=== PATIENT | male | born 1965 | race Caucasian/White ===

== ENCOUNTER 2017-04-25 22:37 | Emergency (ER) | payer BC, OTHER ==
[~2017-04-25] VITALS: Ht 182.9 cm; Wt 76.8 kg
[2017-04-25 22:38] VITALS: BP 119/72
[2017-04-25] MEDS ORDERED: PROPARACAINE OPHTH 0.5%, 15ML ONE (22:51)
[2017-04-25] MEDS ORDERED: FLUORESCEIN OPHTHALMIC 1 MG STRIP ONE (22:51)
[2017-04-25] MEDS ORDERED: PROPARACAINE OPHTH 0.5%, 15ML EACHEYE ONE (23:00)
[2017-04-25] MEDS ORDERED: FLUORESCEIN OPHTHALMIC 1 MG STRIP EACHEYE ONE (23:00)
== END 2017-04-25 23:11 | disposition home or self-care (01) ==
LOC: ED 23:01
DX: H57.12 Ocular pain, left eye (principal)
CPT/HCPCS: 99283

== ENCOUNTER 2017-06-08 12:30 | Inpatient (IN) | payer BC ==
[~2017-06-08] VITALS: Ht 182.9 cm; Wt 79.4 kg
[2017-06-08] MEDS ORDERED: SODIUM CHLORIDE 0.9% 1,000 ML IV ONE (13:50)
[2017-06-08] MEDS ORDERED: SODIUM CHLORIDE FLUSH 10ML SYR IVF ONE (14:00)
[2017-06-08] MEDS ORDERED: AMPICILLIN/SULBACTAM 3 GM in SODIUM CHLORIDE 0.9% 100 ML IVPB ONE (14:00)
[2017-06-08] MEDS ORDERED: SODIUM CHLORIDE 0.9% 1,000ML IVBOLUS ONE (14:00)
[2017-06-08 14:28] LABS: ASPARTATE AMINO TRANSFERASE 29 U/L (15-37); BLOOD UREA NITROGEN 13 mg/dL (7-18)
[2017-06-08] MEDS ORDERED: ACETAMINOPHEN 325 MG TABLET PO PRN (15:30)
[2017-06-08] MEDS ORDERED: PIPERACILLIN/TAZO/PMX 3.375GM 50 ML IV SCH (15:30)
[2017-06-08] MEDS ORDERED: ONDANSETRON 2MG/ML, 2ML IVPush PRN (15:30)
[2017-06-08] MEDS ORDERED: POLYETHYLENE GLYCOL 17 GM PACKET PO PRN (15:30)
[2017-06-08 17:37] VITALS: BP 131/81
[2017-06-08] MEDS: HYDROcodone/APAP 5/325 TABLET PO PRN ×2 (17:55→22:37)
[2017-06-08] MEDS ORDERED: NS + 20MEQ KCL 1,000 ML IV SCH (18:00)
[2017-06-08] MEDS ORDERED: PHARMACOKINETIC MONITORING MC PRN (19:00)
[2017-06-08] MEDS ORDERED: PHARMACOKINETIC CONSULTATION MC ONE (19:00)
[2017-06-08] MEDS ORDERED: VANCOMYCIN PER PHARMACY MC PRN (19:00)
[2017-06-08 19:39] VITALS: BP 97/53
[2017-06-08] MEDS: VANCOMYCIN 1,400 MG in SODIUM CHLORIDE 0.9% 250 ML IV SCH (20:50)
[2017-06-08] MEDS: PIPERACILLIN/TAZO/PMX 3.375GM 50 ML IV SCH (22:28)
[2017-06-08] MEDS ORDERED: OMNIPAQUE 350 MG/ML, 100ML BOTTLE ONE (23:47)
[2017-06-09 02:09] VITALS: BP 104/58
[2017-06-09] MEDS: PIPERACILLIN/TAZO/PMX 3.375GM 50 ML IV SCH ×4 (04:12→23:23)
[2017-06-09] MEDS: HYDROcodone/APAP 5/325 TABLET PO PRN (04:23)
[2017-06-09] MEDS: morphine SULFATE 10 MG/ML, 1ML IVPush PRN ×2 (04:35→12:58)
[2017-06-09 05:18] LABS: BLOOD UREA NITROGEN 16 mg/dL (7-18)
[2017-06-09 06:39] VITALS: BP 107/59
[2017-06-09] MEDS: SENNA/DOCUSATE TABLET PO SCH (09:57)
[2017-06-09] MEDS: VANCOMYCIN 1,400 MG in SODIUM CHLORIDE 0.9% 250 ML IV SCH (09:57)
[2017-06-09 14:05] VITALS: BP 106/58
[2017-06-09] MEDS ORDERED: MIDAZOLAM 1 MG/ML, 2ML ONE (16:25)
[2017-06-09] MEDS ORDERED: FENTANYL PF 250 MCG/5ML ONE (16:25)
[2017-06-09] MEDS ORDERED: ROCURONIUM 10 MG/ML ONE (16:59)
[2017-06-09] MEDS ORDERED: DEXAMETHASONE 4 MG/ML, 1ML ONE (16:59)
[2017-06-09] MEDS ORDERED: SUCCINYLCHOLINE 20 MG/ML, 10ML ONE (16:59)
[2017-06-09] MEDS ORDERED: CEFAZOLIN 1,000 MG ONE (16:59)
[2017-06-09] MEDS ORDERED: PROPOFOL 10 MG/ML, 20ML ONE (16:59)
[2017-06-09] MEDS ORDERED: ONDANSETRON 2MG/ML, 2ML ONE (16:59)
[2017-06-09] MEDS ORDERED: VANCOMYCIN 1,000 MG ONE (17:33)
[2017-06-09] MEDS ORDERED: BUPIVACAINE/PF-EPI 0.5% 1:200K ONE (18:31)
[2017-06-09] MEDS ORDERED: FENTANYL PF 100 MCG/2ML IV PRN (19:00)
[2017-06-09] MEDS ORDERED: ACETAMINOPHEN 325 MG TABLET PO PRN (19:00)
[2017-06-09] MEDS ORDERED: LABETALOL 5MG/ML, 20ML IV PRN (19:00)
[2017-06-09] MEDS ORDERED: hydrALAzine 20 MG/ML, 1ML IV PRN (19:00)
[2017-06-09] MEDS ORDERED: METOCLOPRAMIDE 5 MG/ML, 2ML IV PRN (19:00)
[2017-06-09] MEDS ORDERED: ONDANSETRON 2MG/ML, 2ML IVPush PRN (19:00)
[2017-06-09] MEDS ORDERED: HYDROmorphone 1 MG/ML, 1ML IV PRN ×2 (19:00→21:00)
[2017-06-09] MEDS ORDERED: OXYcodone 5 MG/5 ML ORAL.SOL UDC PO PRN (19:00)
[2017-06-09] MEDS ORDERED: FLUORESCEIN SODIUM 500 MG/5 ML ONE (19:21)
[2017-06-09] MEDS ORDERED: OXYcodone 5 MG/5 ML ORAL.SOL UDC ONE (21:24)
[2017-06-09 23:09] VITALS: BP 106/56
[2017-06-10] MEDS: VANCOMYCIN 1,400 MG in SODIUM CHLORIDE 0.9% 250 ML IV SCH ×3 (00:04→23:59)
[2017-06-10] MEDS: OXYcodone IR 5MG TABLET PO PRN ×5 (01:37→23:20)
[2017-06-10 02:52] VITALS: BP 106/62
[2017-06-10] MEDS: PIPERACILLIN/TAZO/PMX 3.375GM 50 ML IV SCH ×2 (05:19→11:03)
[2017-06-10 06:44] VITALS: BP 97/60
[2017-06-10] MEDS: SENNA/DOCUSATE TABLET PO SCH (09:00)
[2017-06-10] MEDS: DOCUSATE 100 MG CAPSULE PO PRN (10:19)
[2017-06-10 12:37] VITALS: BP 101/63
[2017-06-10] MEDS: ENOXAPARIN 40 MG/0.4 ML SQ SCH (15:49)
[2017-06-10 19:04] VITALS: BP 96/60
[2017-06-11 02:34] VITALS: BP 103/56
[2017-06-11] MEDS: OXYcodone IR 5MG TABLET PO PRN ×3 (03:56→19:28)
[2017-06-11 07:11] VITALS: BP 85/39
[2017-06-11 07:27] VITALS: BP 93/50
[2017-06-11 10:55] VITALS: BP 102/58
[2017-06-11] MEDS: SENNA/DOCUSATE TABLET PO SCH (10:55)
[2017-06-11] MEDS: VANCOMYCIN 1,400 MG in SODIUM CHLORIDE 0.9% 250 ML IV SCH (12:23)
[2017-06-11 14:01] VITALS: BP 115/66
[2017-06-11] MEDS: DOCUSATE 100 MG CAPSULE PO PRN (15:08)
[2017-06-11] MEDS: ENOXAPARIN 40 MG/0.4 ML SQ SCH (15:08)
[2017-06-11 18:39] VITALS: BP 119/49
[2017-06-12] MEDS: VANCOMYCIN 1,400 MG in SODIUM CHLORIDE 0.9% 250 ML IV SCH ×3 (00:22→23:55)
[2017-06-12 01:32] VITALS: BP 102/58
[2017-06-12 06:38] VITALS: BP 120/60
[2017-06-12] MEDS: SENNA/DOCUSATE TABLET PO SCH (10:52)
[2017-06-12] MEDS: DOCUSATE 100 MG CAPSULE PO PRN (10:52)
[2017-06-12] MEDS: OXYcodone IR 5MG TABLET PO PRN (12:43)
[2017-06-12 13:03] VITALS: BP 121/69
[2017-06-12] MEDS: ENOXAPARIN 40 MG/0.4 ML SQ SCH (15:06)
[2017-06-12 19:48] VITALS: BP 114/55
[2017-06-13 02:07] VITALS: BP 122/66
[2017-06-13 07:38] VITALS: BP 113/66
[2017-06-13] MEDS: SENNA/DOCUSATE TABLET PO SCH (09:21)
[2017-06-13] MEDS: OXYcodone IR 5MG TABLET PO PRN ×2 (09:21→20:22)
[2017-06-13] MEDS: VANCOMYCIN 1,400 MG in SODIUM CHLORIDE 0.9% 250 ML IV SCH ×2 (12:32→23:49)
[2017-06-13 12:45] VITALS: BP 120/58
[2017-06-13] MEDS: ENOXAPARIN 40 MG/0.4 ML SQ SCH (15:53)
[2017-06-13 18:54] VITALS: BP 129/73
[2017-06-14 00:11] VITALS: BP 120/66
[2017-06-14 07:30] VITALS: BP 117/68
[2017-06-14] MEDS: DOCUSATE 100 MG CAPSULE PO PRN (08:35)
[2017-06-14] MEDS: SENNA/DOCUSATE TABLET PO SCH (08:35)
[2017-06-14] MEDS: VANCOMYCIN 1,400 MG in SODIUM CHLORIDE 0.9% 250 ML IV SCH (12:03)
[2017-06-14 12:26] VITALS: BP 109/62
[2017-06-14] MEDS ORDERED: ENOX80SY5 SQ (14:19)
[2017-06-14] MEDS ORDERED: ACET650S21 PO (14:20)
[2017-06-14] MEDS ORDERED: SENN1TAB5 PO (14:20)
[2017-06-14] MEDS ORDERED: VANC1.5P3 IV (14:20)
[2017-06-14] MEDS ORDERED: OXYC5TAB3 PO (14:21)
[2017-06-14] MEDS ORDERED: DOCU-30 PO (14:21)
[2017-06-14] MEDS ORDERED: ONDA4TAB7 IV (14:21)
[2017-06-14] MEDS ORDERED: POLY17PO5 PO (14:22)
[2017-06-14] MEDS: ENOXAPARIN 40 MG/0.4 ML SQ SCH (15:46)
== END 2017-06-14 17:10 | DRG 493 ==
LOC: ED 14:13 → SUATTDRO 15:17 → EDIP 15:26 → 3NE 16:55 → 4NOR 06-09 18:55
PROVIDERS: ADMIT Family Medicine; ATTEND Family Medicine
PROC: 0QBG0ZZ Excision of Right Tibia, Open Approach (ICD-10-PCS; principal; 2017-06-08)
PROC: 0QPG04Z Removal of Internal Fixation Device from Right Tibia, Open Approach (ICD-10-PCS; 2017-06-08)
PROC: 0QPJ04Z Removal of Internal Fixation Device from Right Fibula, Open Approach (ICD-10-PCS; 2017-06-08)
PROC: 0SHF08Z Insertion of Spacer into Right Ankle Joint, Open Approach (ICD-10-PCS; 2017-06-08)
PROC: 02HV33Z Insertion of Infusion Device into Superior Vena Cava, Percutaneous Approach (ICD-10-PCS; 2017-06-13)
PROC: B5181ZA Fluoroscopy of Superior Vena Cava using Low Osmolar Contrast, Guidance (ICD-10-PCS; 2017-06-13)
PROC: B548ZZA Ultrasonography of Superior Vena Cava, Guidance (ICD-10-PCS; 2017-06-13)
DX: M86.461 Chronic osteomyelitis with draining sinus, right tibia and fibula (principal); T84.116A Breakdown (mechanical) of internal fixation device of bone of right lower leg, initial encounter; Z96.9 Presence of functional implant, unspecified
CPT/HCPCS: 36415; 36569; 76001; 76937; 77001; 80048; 80053; 80202; 81001; 83605; 84145; 85025; 85651; 86141; 87040; 87070; 87075; 87077; 87086; 87186; 87205; 96365; 96366; C1713; J0295; J0690; J1100; J1650; J2250; J2405; J2543; J2704; J3010; J3370; J3480; Q9967; C1751; J0330; J2270; J7030; J7050

== ENCOUNTER 2018-04-06 17:47 | Emergency (ER) | payer BC, OTHER ==
[~2018-04-06] VITALS: Ht 182.9 cm; Wt 74.2 kg
[~2018-04-06 17:47] MED LIST: ACET650S21 PO; DOCU-131 PO; ENOX80SY5 SQ; ONDA4TAB7 IV; OXYC5TAB3 PO; POLY17PO5 PO; SENN-52 PO; [UNRECOGNIZED DRUG - CODE] IV
[2018-04-06 18:25] LABS: BASOPHILS # (AUTO) 0.02 x10^3/uL (0-0.1); BASOPHILS % (AUTO) 0 % (0-1); EOSINOPHILS # (AUTO) 0.03 x10^3/uL (0-0.4); EOSINOPHILS % (AUTO) 0 % (1-7); LYMPHOCYTES # (AUTO) 1.35 x10^3/uL (1-3.4); LYMPHOCYTES % (AUTO) 13 % (22-44); MD NO; MEAN CORPUSCULAR HEMOGLOBIN 31.3 pg (27.5-34.5); MEAN CORPUSCULAR HGB CONC 34.1 g/dL (33.2-36.2); MEAN CORPUSCULAR VOLUME 91.6 fL (81-97); MEAN PLATELET VOLUME 7.7 fL (7.4-10.4); MONOCYTES # (AUTO) 0.94 x10^3/uL (0.2-0.8); MONOCYTES % (AUTO) 9 % (2-9); NEUTROPHILS # (AUTO) 8.34 x10^3/uL (1.8-6.8); NEUTROPHILS % (AUTO) 78 % (42-75); PLATELET COUNT 315 x10^3/uL (130-400); RED BLOOD COUNT 4.53 x10^6/uL (4.38-5.82); RED CELL DISTRIBUTION WIDTH 13.4 % (9.4-14.8)
[2018-04-06 18:26] LABS: HCT (SEDRATE) 41.5 % (39.2-51.8)
[2018-04-06 18:38] LABS: ANION GAP 4 mmol/L (5-15); CALCIUM 8.9 mg/dL (8.5-10.1); CHLORIDE 102 mmol/L (98-107); CREATININE 1.36 mg/dL (0.7-1.3)
[2018-04-06 18:51] LABS: C-REACTIVE PROTEIN, QUANT > 19.00 mg/dL (0.02-0.49)
[2018-04-06 21:05] VITALS: BP 103/63
== END 2018-04-06 21:07 | disposition home or self-care (01) ==
LOC: ED 19:57
DX: L03.115 Cellulitis of right lower limb (principal); M79.661 Pain in right lower leg
CPT/HCPCS: 36415; 80048; 84145; 85025; 85651; 86140; 87040; 99285